=== PATIENT | male | born 1955 | race Caucasian/White ===

== ENCOUNTER 2017-01-12 15:33 | Observation (INO) | payer BC ==
[~2017-01-12] VITALS: Ht 152.4 cm; Wt 92.4 kg
[2017-01-12 15:48] VITALS: BP 118/73; PULSE 74; TEMP 97.9
[2017-01-12] MEDS ORDERED: AZOPT 10 ML10 ML OU (16:42)
[2017-01-12] MEDS ORDERED: ZOFRAN ODT4 MG PO (16:48)
[2017-01-12] MEDS ORDERED: TOPROL XL 25MG25 MG PO (16:49)
[2017-01-12] MEDS ORDERED: SYNTHROID 0.0.025 MG PO (16:49)
[2017-01-12] MEDS ORDERED: CRESTOR 10MG10 MG PO (16:50)
[2017-01-12] MEDS ORDERED: IMDUR 30MG30 MG/TAB PO (16:51)
[2017-01-12] MEDS ORDERED: COMBIGAN 0.2%-0.5 ML OS (16:52)
[2017-01-12] MEDS ORDERED: NITROSTAT0.4 MG/TAB SL (16:54)
[2017-01-12] MEDS ORDERED: ASPIRIN 81M81 MG/TA2 PO (16:57)
[2017-01-12] MEDS ORDERED: EPA FISH OIL1 SGL PO (16:57)
[2017-01-12] MEDS ORDERED: VITAMINC1000TA (16:58)
[2017-01-12] MEDS ORDERED: PRILOSEC 20MG20 MG PO (16:58)
[2017-01-12] MEDS ORDERED: XALATAN EYE DROPS OD (16:59)
[2017-01-12 17:51] LABS: HEMATOCRIT 39.3 % (42.0-52.0); HEMOGLOBIN 13.2 g/dl (13.5-18.0); MEAN CELL VOLUME 91 fl (80.0-100.0); MEAN CORPUSCULAR HEMOGLOBIN 31 pg (27.0-31.0); MEAN CORPUSCULAR HGB CONC 34 g/dl (33.0-37.0); MEAN PLATELET VOLUME 9.4 fl (7.4-10.4); PLATELET COUNT 322 K/mm3 (130-400); RED BLOOD COUNT 4.33 M/mm3 (4.20-5.60); WHITE BLOOD COUNT 6.7 K/mm3 (4.8-10.8)
[2017-01-12 18:01] LABS: ADJUSTED CALCIUM 8.9 mg/dL (8.4-10.2); ALBUMIN 4.3 gm/dL (3.5-5.0); BILIRUBIN,TOTAL 1.4 mg/dL (0.0-1.0); CALCIUM 9.1 mg/dL (8.4-10.2); CREATININE, serum 0.95 mg/dL (0.66-1.25); POTASSIUM 3.5 mmol/L (3.4-5.0); TOTAL PROTEIN 6.9 gm/dL (6.4-8.2)
[2017-01-12 20:00] VITALS: BP 110/67; PULSE 69; TEMP 97.6
[2017-01-13] VITALS (10 sets, daily range): BP systolic 108–128; BP diastolic 50–69; PULSE 59–80; TEMP 97.3–98.2
== END 2017-01-13 12:05 | disposition home or self-care (01) ==
LOC: SDCO 15:33 → SURG 15:33 → SDCO 01-13 07:50 → SURG 01-13 12:05 → SDCO 01-13 12:05 → SURG 01-13 12:05 → SDCO 01-13 17:27
PROVIDERS: Surgery
DX: K80.10 Calculus of gallbladder with chronic cholecystitis without obstruction (principal); I25.10 Atherosclerotic heart disease of native coronary artery without angina pectoris; E11.9 Type 2 diabetes mellitus without complications; I10 Essential (primary) hypertension; H40.9 Unspecified glaucoma; E03.9 Hypothyroidism, unspecified; I25.2 Old myocardial infarction; Z87.891 Personal history of nicotine dependence; Z95.5 Presence of coronary angioplasty implant and graft; K27.9 Peptic ulcer, site unspecified, unspecified as acute or chronic, without hemorrhage or perforation; Z79.82 Long term (current) use of aspirin
CPT/HCPCS: OP; G0378; G0379; J0330; J0690; J1885; J2250; J2270; J2405; J2704; J2710; J3010; J7050; J7120; Q9967

== ENCOUNTER 2018-05-25 13:41 | Emergency (ER) | payer BC ==
[~2018-05-25] VITALS: Ht 180.3 cm; Wt 90.0 kg
[~2018-05-25 13:41] MED LIST: ASPIRIN 81M81 MG/TA2 PO; AZOPT 10 ML10 ML OU; COMBIGAN 0.2%-0.5 ML OS; CRESTOR 10MG10 MG PO; EPA FISH OIL1 SGL PO; IMDUR 30MG30 MG/TAB PO; NITROSTAT0.4 MG/TAB SL; PRILOSEC 20MG20 MG PO; SYNTHROID 0.0.025 MG PO; TOPROL XL 25MG25 MG PO; VITAMINC1000TA; XALATAN EYE DROPS OD; ZOFRAN ODT4 MG PO
[2018-05-25 13:45] VITALS: TEMP 98.3
[2018-05-25] MEDS ORDERED: K-DUR 10 MEQ T10 MEQ PO (14:09)
[2018-05-25] MEDS ORDERED: PLAVIX 75MG TAB75 MG PO (14:10)
[2018-05-25] MEDS ORDERED: ARICEPT 5MG PO (14:11)
[2018-05-25] MEDS ORDERED: ZYPREXA 5MG5 MG PO (14:12)
[2018-05-25] MEDS ORDERED: ZETIA 10MG TAB10 MG PO (14:12)
[2018-05-25] MEDS ORDERED: NAMENDA 10MG TA10 MG PO (14:13)
[2018-05-25] MEDS ORDERED: ZOLOFT 100MG100 MG PO (14:13)
[2018-05-25] MEDS ORDERED: PROTONIX20 MG PO (14:14)
[2018-05-25] MEDS ORDERED: OMNICEF 300MG300 MG (14:15)
[2018-05-25 15:08] LABS: BASO % 0.6 % (0.0-2.0); EOS # 0.1 (0.0-0.7); EOS % 2.1 % (0-4.0); GRAN # 3.1 (1.4-6.5); GRAN % 57.2 % (42.2-75.2); HEMATOCRIT 39.1 % (42.0-52.0); HEMOGLOBIN 13.3 g/dl (13.5-18.0); LYMPH # 1.8 (1.2-3.4); LYMPH % 34.3 % (20.0-51.0); MEAN CELL VOLUME 89 fl (80.0-100.0); MEAN CORPUSCULAR HEMOGLOBIN 30 pg (27.0-31.0); MEAN CORPUSCULAR HGB CONC 34 g/dl (33.0-37.0); MEAN PLATELET VOLUME 9.4 fl (7.4-10.4); MONO # 0.3 (0.1-0.6); MONO % 5.6 % (1.7-9.3); PLATELET COUNT 315 K/mm3 (130-400); RED BLOOD COUNT 4.38 M/mm3 (4.20-5.60)
[2018-05-25 15:20] LABS: ALANINE AMINOTRANSFERASE 36 U/L (21-72); ALBUMIN 3.9 gm/dL (3.5-5.0); ALKALINE PHOSPHATASE 78 U/L (50-136); ANION GAP 9 mmol/L (7-16); AST,SGOT 30 U/L (15-37); BILIRUBIN,TOTAL 0.9 mg/dL (0.0-1.0); BLOOD UREA NITROGEN 12 mg/dL (9-20); CARBON DIOXIDE 26 mmol/L (22-30); CHLORIDE 108 mmol/L (98-107); CREATININE, serum 0.92 (0.66-1.25); GLUCOSE 127 mg/dL (74-106); POTASSIUM 3.7 mmol/L (3.4-5.0); SODIUM 142 mmol/L (137-145); TOTAL PROTEIN 7.1 gm/dL (6.4-8.2)
[2018-05-25 15:33] LABS: TROPONIN-I < 0.012 ng/mL (0.000-0.035)
[2018-05-25] MEDS ORDERED: ZITHROMAX 250M250 MG PO (17:06)
[2018-05-25] MEDS ORDERED: PREDNISONE10 MG PO (17:07)
[2018-05-25 17:50] VITALS: BP 146/66; PULSE 84
== END 2018-05-25 18:00 | disposition home or self-care (01) ==
LOC: COL.ER 13:41
PROVIDERS: Family Medicine
DX: J20.9 Acute bronchitis, unspecified (principal); J44.0 Chronic obstructive pulmonary disease with (acute) lower respiratory infection; J44.1 Chronic obstructive pulmonary disease with (acute) exacerbation; I25.10 Atherosclerotic heart disease of native coronary artery without angina pectoris; Z79.82 Long term (current) use of aspirin; Z95.5 Presence of coronary angioplasty implant and graft
CPT/HCPCS: J2930; J7512

== ENCOUNTER → 2018-08-28 | Outpatient (CLI) | payer BC ==
[~2018-08-28] MED LIST changes: +ARICEPT 5MG PO; +K-DUR 10 MEQ T10 MEQ PO; +NAMENDA 10MG TA10 MG PO; +OMNICEF 300MG300 MG; +PLAVIX 75MG TAB75 MG PO; +PREDNISONE10 MG PO; +PROTONIX20 MG PO; +ZETIA 10MG TAB10 MG PO; +ZITHROMAX 250M250 MG PO; +ZOLOFT 100MG100 MG PO; +ZYPREXA 5MG5 MG PO
== END ==
LOC: BHSO 10:43
DX: F06.32 Mood disorder due to known physiological condition with major depressive-like episode (principal)

== ENCOUNTER → 2018-09-30 | Outpatient (CLI) | payer BC | LOC: BHSO 13:10 | DX: F41.1 Generalized anxiety disorder (principal) | CPT/HCPCS: G0463 ==